=== PATIENT | female | born 1990 | race Caucasian/White ===

== ENCOUNTER 2018-03-26 09:49 | Emergency (ER) | payer OTHER, SELFPAY ==
[2018-03-26 10:00] VITALS: BP 123/75; PULSE 102; RESP 20; TEMP 36.6; O2SAT 100; BMI 23.3
--- NOTE | 2018-03-26 11:43 | ED.ABDPAIN ---
HPI - Abdominal Pain General Chief Complaint: Abdominal Pain Stated Complaint: states stomach virus, diarrhea, rash Time Seen by Provider: 03/26/18 11:32 Source: patient Mode of arrival: ambulatory Limitations: no limitations History of Present Illness HPI narrative: 28-year-old otherwise healthy female here for evaluation of 1 week of profuse watery diarrhea. She also states that over the past 24 hr she has developed a rash around her groin and also under her armpits. No fevers. She has not tried anything for the symptoms prior to arrival. No recent travel. No recent antibiotics. No recent camping. Reports some nausea but no vomiting. No urinary symptoms. No vaginal bleeding. Related Data Previous Rx's Medication Instructions Recorded azithromycin 250 mg tablet See Label Instructions PO .COMPLEX 12/18/17 #6 tab pseudoephedrine ER 120 mg 120 mg PO Q12H PRN #30 tab 12/18/17 tablet,extended release ciprofloxacin HCl 500 mg PO BID 3 Days #6 tab 03/26/18 loperamide [Imodium A-D] 2 mg PO Q2-4H PRN #14 tab 03/26/18 ondansetron 4 mg PO Q6-8H PRN #10 tab 03/26/18 Allergies Allergy/AdvReac Type Severity Reaction Status Date / Time No Known Allergies Allergy Uncoded 10/24/17 09:20 Review of Systems Constitutional Denies fever(s) Eyes Denies itchy eyes ENT Ears, Nose, Mouth, and Throat: Denies throat swelling Cardiovascular Denies chest pain and Denies dyspnea Respiratory Denies dyspnea Gastrointestinal Gastrointestinal: Denies abdominal pain, Denies melena, Reports diarrhea, Reports nausea and Denies vomiting Genitourinary Denies dysuria, Denies flank pain and Denies vaginal discharge Musculoskeletal Denies myalgias and Denies arthralgias Integumentary/Breasts Reports rash Neurologic Denies behavioral changes Psychiatric Denies behavioral changes Allergic/Immunologic Denies urticaria, Denies itchy eyes and Denies throat swelling [facility] Social History Smoking Status: Never smoker Exam Initial Vital Signs Initial Vital Signs: Vital Signs Temperature 98 F 03/26/18 10:00 Pulse Rate 102 H 03/26/18 10:00 Respiratory Rate 20 03/26/18 10:00 Blood Pressure 123/75 03/26/18 10:00 Pulse Oximetry 100 03/26/18 10:00 Const General: cooperative, healthy appearing, comfortable, well developed, well groomed and No acute distress Orientation: alert, awake and oriented x3 HENMT Head: normal to inspection and normocephalic Resp Effort & Inspection: normal respiratory effort Auscultation: clear to auscultation bilaterally Cardio Rate: regular rate Rhythm: regular rhythm Pulses: radial pulses present GI Inspection: non-distended Palpation: soft, No firm, No rigid and No tender Back/Spine/Pelvis Back: No CVA tenderness Skin Other: Patient with a rash under bilateral armpits and around her groin. Has a macular papular rash. No vesicles. No blisters. No pustules. No blanching. Neuro General: alert, awake and oriented x3 Extrem General: normal to inspection and capillary refill normal Psych Appearance: grossly normal and well kempt Course Vital Signs - 8 hr 03/26/18 10:00 03/26/18 12:47 Temperature 98 F Pulse Rate 102 H 89 Respiratory Rate 20 16 Blood Pressure 123/75 111/71 Pulse Oximetry 100 100 MDM - Abdominal Pain MDM Narrative Medical decision making narrative: Patient is nontoxic appearing. He is low risk for invasive bacteria however she states that at the beginning of the symptoms she did eat some raw cookie dough. Is still tolerating oral intake. The rash she has today has a appearance of a heat rash. I do not believe that the diarrhea and the rash are connected. Patient has been unable to provide a stool sample. She is not on antibiotics. Had a long discussion with the patient regarding her symptoms. Informed her that my recommendation would be for her to try Imodium for the next 48 hr to see if this does not improved/resolved her symptoms. Informed her that if this does not improve anything or she develops worsening symptoms that she could try the antibiotics. I did informed her that I recommended she make contact with the primary care doctor she expressed understanding and agreement with plan. Discharge Plan Departure Patient Disposition: Home Clinical Impression: Diarrhea, Rash Discharge Date/Time: 03/26/18 12:47 Interventions: ED Discharge Assessment Last Done: 03/26/18 12:47 Instructions: Diarrhea (Alternative Therapy), Diarrhea, DI for Rash Activity Restrictions/Additional Instructions: I recommend that you increase your fluid intake. Take the nausea medication as needed. I also recommend that you start with taking the Imodium/loperamide like we discussed. Give this at least 48 hr and if it does not improve her symptoms then start the antibiotics as directed. I do recommend that you may contact with a primary care doctor for follow-up. Return to the emergency department for any new symptoms, fevers, abdominal pain, or any other concerning symptoms Prescriptions: New loperamide [Imodium A-D] 2 mg tablet 2 mg PO Q2-4H PRN (Reason: loose stool) Qty: 14 RF: 0 ciprofloxacin HCl 500 mg tablet 500 mg PO BID 3 Days Qty: 6 RF: 0 ondansetron 4 mg tablet,disintegrating 4 mg PO Q6-8H PRN (Reason: nausea and vomiting) Qty: 10 RF: 0 No Action pseudoephedrine HCl 120 mg tablet extended release 120 mg PO Q12H PRN (Reason: nasal congestion) Qty: 30 RF: 3 azithromycin 250 mg tablet See Label Instructions PO .COMPLEX Qty: 6 RF: 0
--- NOTE | 2018-03-26 12:46 | PC.NURSE ---
denies traveling outside [place], denies fever and vomiting at home, nad. no respiratory distress.
[2018-03-26 12:47] VITALS: BP 111/71; PULSE 89; RESP 16; O2SAT 100
== END 2018-03-26 12:47 | disposition home or self-care (01) ==
PROVIDERS: Emergency Provider Emergency Medicine
DX: R19.7 Diarrhea, unspecified (principal); R21 Rash and other nonspecific skin eruption
CPT/HCPCS: 99282

== ENCOUNTER → 2018-11-16 09:16 | Outpatient (CLI) | payer OTHER, SELFPAY ==
[2018-11-16 10:25] LABS: Add Manual Diff / Slide Review NO; Basophils Absolute Auto 0 /uL (0-100); Basophils Percent Auto 0.3 % (0-2); Eosinophils Absolute Auto 200 /uL (0-450); Eosinophils Percent Auto 3.3 % (2-4); Hematocrit 42.2 % (36-46); Hemoglobin 14.3 g/dL (12.0-16.0); Lymphocytes Absolute Auto 2000 /uL (1100-4500); Lymphocytes Percent Auto 34.9 % (25-40); Mean Corpuscular HGB Conc 33.8 % (30-36); Mean Corpuscular Hemoglobin 28.3 PG (26-34); Mean Corpuscular Volume 83.8 fL (80-100); Monocytes Absolute Auto 400 /uL (0-900); Monocytes Percent Auto 7.2 % (3-14); Neutrophils Absolute Auto 3200 /uL (1500-7000); Neutrophils Percent Auto 54.3 % (50-75); Platelet Count 228 X10^3/uL (150-400); Red Blood Cell Count 5.04 X10^6/uL (4.0-5.2); Red Cell Distribution Width 12.9 % (11.6-14.8); White Blood Cell Count 5.8 X10^3/uL (4.5-11.0)
[2018-11-16 10:48] LABS: Alanine Aminotransferase 26 IU/L (9-52); Albumin 4.6 g/dL (3.5-5.0); Albumin Globulin Ratio 1.8 (1.0-2.8); Alkaline Phosphatase 48 U/L (38-126); Aspartate Aminotransferase 29 IU/L (14-36); Bilirubin Total 0.6 mg/dL (0.2-1.3); Blood Urea Nitrogen 16 mg/dL (7-17); Calcium 9.6 mg/dL (8.4-10.2); Carbon Dioxide 28 mmol/L (22-32); Chloride 101 mmol/L (98-107); Estimated Glomerular Filt Rate > 60.0 mL/min (>60); Globulin 2.5 g/dL (1.7-4.1); Glucose 89 mg/dL (70-100); HEMOLYSIS < 15 (0-50); Potassium 4.8 mmol/L (3.4-5.1); Sodium 139 mmol/L (137-145); Total Protein 7.1 g/dL (6.3-8.2)
== END ==
PROVIDERS: Visit Provider Hospitalist
DX: E03.9 Hypothyroidism, unspecified (principal)
CPT/HCPCS: 36415; 80053; 84443; 85025